=== PATIENT | female | born 1985 | race Caucasian/White ===

== ENCOUNTER → 2017-10-02 14:59 | Outpatient (CLI) | payer MEDICAID, SELFPAY ==
--- NOTE | 2017-10-02 15:03 | US_ITS ---
STUDY: ULTRASOUND OF THE FEMALE PELVIS - COMPLETE REASON FOR EXAM: Female, 31 years old. Left adnexal pain LMP: 07/14/2017 TECHNIQUE: Transabdominal real-time exam with gamino scale image documentation. TECHNICAL QUALITY: Adequate. COMPARISON: None. FINDINGS: The uterus is anteverted and is in a midline position. The uterus measures 8.2 x 6.4 x 5.1 cm. Normal uterine cervix. The endometrium measures 7.6 mm in thickness, and is hyperechoic. There is no demonstrated endometrial mass. There is no demonstrated myometrial mass. I.U.D. - The patient does not have an I.U.D. The right ovary is visualized. The right ovary measures 3.2 x 2.5 x 2.1 cm. There is a 2.3 x 2.1 x 2.0 cm simple ovarian cyst. There is no visualized right adnexal mass or complex lesion. There is normal arterial and normal venous vascularity. The left ovary is visualized. The left ovary measures 3.4 x 2.4 x 2.0 cm. There is a 2.2 x 1.6 x 1.4 cm simple left ovarian cyst. There is no visualized left adnexal mass or complex lesion. There is normal arterial and normal venous vascularity. There is no fluid in the cul-de-sac. The pre void volume of the bladder was 41 ml. Polycystic ovary disease: No. US/Pelvic (Non ) IMPRESSION: Normal uterus. 2.3 x 2.1 x 2.0 cm simple right ovarian cyst. 2.2 x 1.6 x 1.4 cm simple left ovarian cyst. Negative for adnexal masses or free fluid. Electronically Signed: Magaly Escobar MD at 15:47 EST , Service support ,
== END ==
PROVIDERS: Family Provider Family Medicine; PCP Family Medicine; Visit Provider Nurse Practitioner Women's Health
DX: R10.2 Pelvic and perineal pain (principal)
CPT/HCPCS: 76856; 93976

== ENCOUNTER 2018-04-10 18:12 | Emergency (ER) | payer OTHER, MEDICAID, SELFPAY ==
[2018-04-10 18:13] VITALS: BP 122/74; PULSE 88; RESP 16; TEMP 36.9; O2SAT 100; BMI 25.4
--- NOTE | 2018-04-10 18:41 | ED.DEP ---
ED Disposition - Plan for ED Patient: Chief Complaint: Upper Extremity Injury Instructions: ED Carpal Tunnel Referrals: Siva Alves MD [NON-STAFF] -
--- NOTE | 2018-04-10 18:56 | ED.DCSUM_ITS ---
- ER Visit Summary Date of Service: 04/10/18 Chief Complaint: Right hand burning History of Present Illness: The patient is a 32 F presenting with burning sensation in her right hand. She states she wakes up with this frequently at night. She states this has been ongoing for the past 4-5 weeks. She states prior to that it had been intermittent for several years. She denies any direct injury to her hand. 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 She is right-handed. She denies other complaints. Physical Examination: Vitals are stable. Patient is afebrile. Alert no acute distress. HEENT exam is unremarkable. Lungs are clear and equal bilaterally. Heart is regular rate and rhythm. Extremities no swelling or deformity. No erythema or warmth. Normal cap refill. Normal range of motion. Skin is warm and dry. No focal neurologic deficit. Remainder of exam is unremarkable. Emergency Department Course and Treatment: I suspect carpal tunnel. She is given a cockup wrist splint. She is advised to use NSAIDs for pain. Advised to follow-up with her primary care physician. Advised return to ED for worsening complaints. Disposition: Discharge home Impression: Right hand pain suspect carpal tunnel This note was generated with [employer] dictation software. It may contain incorrect words, spelling, and punctuation that were not noted in review of the chart prior to signing ED Disposition - Plan for ED Patient: Chief Complaint: Upper Extremity Injury Instructions: ED Carpal Tunnel Referrals: Siva Alves MD [NON-STAFF] -
[2018-04-10 18:57] VITALS: RESP 16
== END 2018-04-10 18:57 | disposition home or self-care (01) ==
PROVIDERS: Emergency Provider Emergency Medicine; Family Provider Family Medicine; PCP Family Medicine
DX: M79.641 Pain in right hand (principal); Z72.0 Tobacco use
CPT/HCPCS: 99283

== ENCOUNTER → 2020-03-31 11:52 | Outpatient (CLI) | payer MEDICAID, SELFPAY ==
--- NOTE | 2020-03-31 11:56 | RAD_ITS ---
STUDY: X-RAY - CERVICAL SPINE REASON FOR EXAM: Female, 34 years old. right shoulder pain, bilateral hand numbness TECHNIQUE: 5 view(s) of the cervical spine were obtained. COMPARISON: None FINDINGS: Normal anterior atlantoaxial articulation. Normal odontoid process. There is straightening of the normal cervical lordosis. Normal vertebral bodies and endplates. Mild loss of disc space at C5-C6 but remaining disc spaces are normal. There is mild foraminal narrowing of the left C5-C6. The soft tissue structures are unremarkable. RAD/Cerv Spine 4 or 5 Views IMPRESSION: Degenerative disc disease with left foraminal narrowing. Electronically Signed: Roverto Alvarez MD ([place]) at 12:55 EDT , Service support ,
== END ==
PROVIDERS: PCP Family Medicine; Referring Provider Chiropractor; Visit Provider Chiropractor
DX: M54.12 Radiculopathy, cervical region (principal)
CPT/HCPCS: 72050

== ENCOUNTER → 2022-01-23 | Outpatient (CLI) | payer MEDICAID, SELFPAY ==
[2022-01-23 14:03] LABS: Hematocrit 43.5 % (37-47); Hemoglobin 14.7 g/dL (12.0-15.0); Mean Corp Hgb Conc 33.8 g/dL (32-36); Mean Corpuscular Hgb 31.5 pg (27.0-32.0); Mean Corpuscular Volume 93.1 fL (81-99); Mean Platelet Vol. 11.1 fl (6.2-12.0); Platelet Count 291 K/mm3 (150-450); RBC Distribution Width CV 14.4 % (11.6-14.6); RBC Distribution Width SD 49.4 fl (35.1-43.9); Red Blood Count 4.67 M/mm3 (4.2-5.4); White Blood Count 12.6 K/mm3 (4.4-11.0)
[2022-01-23 14:13] LABS: Hemoglobin A1c 5.4 % (3.8-5.6)
[2022-01-23 14:17] LABS: Vitamin B12 343 pg/mL (211-911); Vitamin D,25 Hydroxy 24.7 ng/mL
[2022-01-23 14:30] LABS: AST(SGOT) 11 U/L (15-37); Alanine Aminotransfer ALT/SGPT 21 U/L (13-56); Albumin, Serum 3.6 g/dL (3.2-5.0); Alkaline Phosphatase 86 U/L (45-117); Anion Gap 7 (5-15); BUN 7 mg/dL (7-18); BUN/Creat Ratio 8.1 RATIO (10-20); Calcium,Total 8.7 mg/dL (8.5-10.1); Chloride 110 mmol/L (98-107); Creatinine, Serum 0.86 mg/dL (0.55-1.02); EST Glomerular Filtration Rate 79 mL/min (>60); Est Glom Filt Rate - Afr Amer 95 mL/min (>60); Free T3 2.3 pg/mL (2.18-3.98); Globulin 3.7 g/dL (2.2-4.2); Glucose 101 mg/dL (74-106); Iron 110 ug/dL (50-170); Iron Binding Capacity,Total 400 ug/dL (250-450); Potassium 4.1 mmol/L (3.5-5.1); Protein, Total 7.3 g/dL (6.4-8.2); Sodium Level 141 mmol/L (136-145); T4 Free Direct 1.04 ng/dL (0.76-1.46); Thyroid Stim Hormone (TSH) 1.26 uIU/mL (0.358-3.74)
== END | disposition home or self-care (01) ==
LOC: LAB 13:10
PROVIDERS: PCP Family Medicine; Referring Provider Counselor Mental Health; Visit Provider Counselor Mental Health
DX: E55.9 Vitamin D deficiency, unspecified (principal); F19.10 Other psychoactive substance abuse, uncomplicated; R53.83 Other fatigue; Z79.899 Other long term (current) drug therapy
CPT/HCPCS: 36415; 80053; 82306; 82607; 83036; 83540; 83550; 84439; 84443; 84481; 85027